=== PATIENT | female | born 1990 | race Caucasian/White ===

== ENCOUNTER → 2020-12-12 13:38 | Outpatient (BNVA) | payer BC, SELFPAY | PROVIDERS: Family Provider Nurse Practitioner Family; Visit Provider Nurse Practitioner Family | DX: R53.83 Other fatigue (principal); L70.9 Acne, unspecified; F41.9 Anxiety disorder, unspecified | CPT/HCPCS: 84443; 85025 ==

== ENCOUNTER 2022-12-04 15:00 | Outpatient (CLI) | payer BC, MEDICAID, SELFPAY ==
--- NOTE | 2022-12-04 15:15 | US_ITS ---
WS: [id number] ULTRASOUND SOFT TISSUES LEFT cervical chain HISTORY: R59.1 - Generalized enlarged lymph nodes COMPARISON: None available. TECHNIQUE: 2-D and color Doppler imaging is submitted. Ultrasound on the LEFT cervical chain demonstrates normal cervical chain lymph nodes. Normal fatty hi lum and cortex. Normal vascularity. US/US soft tissue head neck [id number] IMPRESSION: Normal LEFT cervical chain lymph nodes.
== END 2022-12-04 15:01 | disposition home or self-care (01) ==
LOC: RAD 15:05
PROVIDERS: PCP Nurse Practitioner Family; Visit Provider Nurse Practitioner Family
DX: R59.1 Generalized enlarged lymph nodes (principal)
CPT/HCPCS: 76536

== ENCOUNTER 2023-01-18 15:38 | Outpatient (CLI) | payer BC, MEDICAID, SELFPAY ==
--- NOTE | 2023-01-18 15:46 | CTR_ITS ---
PROCEDURE INFORMATION: Exam: CT Neck With Contrast Exam date and time: 01/18/2023 4:18 PM Age: 32 years old Clinical indication: Mass, lump, or swelling in neck; Left; Additional info: Cervicalgia TECHNIQUE: Imaging protocol: Computed tomography of the neck with contrast. Radiation optimization: All CT scans at this facility use at least one of these dose optimization techniques: automated exposure control; mA and/or kV adjustment per patient size (includes targeted exams where dose is matched to clinical indication); or iterative reconstruction. Contrast material: OMNI 350; Contrast volume: 100 ml; Contrast route: INTRAVENOUS (IV); REPORTING DATA: Count of CT and Cardiac NM exams in prior 12 months: This patient has received 0 known CTs and 0 known cardiac nuclear medicine studies in the 12 months prior to the current study. COMPARISON: US soft tissue head neck [id number] 12/04/2022 3:20 PM RADIATION DOSE METRICS: Total DLP (mGy-cm): 154.75 FINDINGS: Paranasal sinuses: Scattered paranasal sinus mucosal thickening, without air-fluid level present. Pharynx: Unremarkable. No significant tonsillar enlargement. Larynx: Unremarkable. Epiglottis is normal. Prevertebral and retropharyngeal spaces: Unremarkable. Salivary glands: Normal. Glands are normal in size. Thyroid: Normal. No enlarged or calcified nodules. Lymph nodes: In left level 2 there are mildly prominent lymph nodes present which measure up to 9 mm short axis which are nonspecific. Trachea: Visualized trachea is unremarkable. Lungs: Unremarkable as visualized. Bones/joints: The cervical spine is straightened which is nonspecific and may be a positional finding. No acute osseous injury is seen. Soft tissues: There is a palpable marker present in the left neck. There is no suspicious mass seen on CT in this region. CT/CT neck w con* [id number] IMPRESSION: 1. No acute findings. 2. No suspicious mass is seen in the left neck deep to the palpable marker. There are subcentimeter left level 2 lymph nodes seen in this region which are nonspecific and may be reactive.
[2023-01-18] MEDS: iohexol 350 mg/mL 500 mL Btl (per mL) IV (15:56)
== END 2023-01-18 15:39 | disposition home or self-care (01) ==
PROVIDERS: PCP Nurse Practitioner Family; Visit Provider Specialist
DX: M54.2 Cervicalgia (principal); R22.1 Localized swelling, mass and lump, neck
CPT/HCPCS: 70491; Q9967

== ENCOUNTER → 2023-02-12 11:03 | Outpatient (BNVA) | payer BC, MEDICAID, SELFPAY | PROVIDERS: PCP Nurse Practitioner Family; Visit Provider Nurse Practitioner Family | DX: E78.5 Hyperlipidemia, unspecified (principal); R53.83 Other fatigue; F41.9 Anxiety disorder, unspecified | CPT/HCPCS: 80053; 80061 ==

== ENCOUNTER → 2023-05-24 13:39 | Outpatient (BNVA) | payer BC, MEDICAID, SELFPAY | PROVIDERS: PCP Nurse Practitioner Family; Visit Provider Nurse Practitioner Family | DX: J06.9 Acute upper respiratory infection, unspecified (principal); Z11.52 Encounter for screening for COVID-19 | CPT/HCPCS: 87400; 87426 ==

== ENCOUNTER → 2023-12-05 14:19 | Outpatient (BNVA) | payer BC, MEDICAID, SELFPAY | PROVIDERS: PCP Nurse Practitioner Family; Visit Provider Nurse Practitioner Family | DX: R55 Syncope and collapse (principal); M54.12 Radiculopathy, cervical region | CPT/HCPCS: 82728; 83550; 84466; 85025 ==

== ENCOUNTER 2024-01-03 15:47 | Outpatient (CLI) | payer BC, MEDICAID, SELFPAY ==
--- NOTE | 2024-01-03 16:00 | MR_ITS ---
WS: [id number] MRI CERVICAL SPINE with and without contrast HISTORY: M54.12 - Radiculopathy, cervical region, RIGHT arm pain. COMPARISON: None available. Technique: Multiplanar, multisequence noncontrast imaging of the cervical spine. Postcontrast imaging 18 mL MultiHance. Straightening and reversal of the normal cervical lordosis. Reversal centered at C4-5. Moderate poste rior disc osteophyte complexes encroaching upon the cervical cord most significant at C4-5 and C5-6. Signal within the cervical cord is normal. Visualized posterior fossa is unremarkable. Craniocervical junction, C1 and C2 relationship, odontoid process and soft tissues are normal. C2-C3: Normal. C3-C4: Small RIGHT foraminal osteophyte. No stenosis. C4-C5: Moderate size LEFT foraminal disc osteophyte complex. Predominantly clawlike osteophyte causin g deformity of the LEFT lateral thecal sac and moderate LEFT foraminal stenosis. Mild facet arthritis . C5-C6: Diffuse osteophytic ridging and disc bulging. Shallow central disc protrusion. Small foraminal osteophytes with mild LEFT foraminal stenosis. C6-C7: Small central disc protrusion. Small foraminal osteophytes and mild facet arthritis. Mild fora patrizia narrowing. C7-T1: No stenosis. Postcontrast imaging is negative. No discitis or osteomyelitis. No enhancing mass. MR/MR cervical spine wo/w [id number] IMPRESSION: 1. Straightening of the normal cervical lordosis centered at C4-5 and C5-6. 2. Disc osteophyte complexes most significant at C4-5 and C5-6 encroaching upo n the thecal sac. 3. C4-5: Moderate size LEFT foraminal disc osteophyte complex. Moderate LEFT f oraminal stenosis. 4. C5-6: Mild LEFT foraminal stenosis. Small foraminal osteophytes and a shall ow disc protrusion. 5. C6-7: Mild bilateral foraminal narrowing.
[2024-01-03] MEDS: gadobenate dimeglumine 20 mL vial IV (16:54)
== END 2024-01-03 15:48 | disposition home or self-care (01) ==
LOC: RAD 15:47
PROVIDERS: PCP Nurse Practitioner Family; Visit Provider Nurse Practitioner Family
DX: M54.12 Radiculopathy, cervical region (principal); M47.892 Other spondylosis, cervical region; M99.61 Osseous and subluxation stenosis of intervertebral foramina of cervical region; M25.78 Osteophyte, vertebrae; G95.29 Other cord compression
CPT/HCPCS: 72156; A9577

== ENCOUNTER → 2024-06-11 10:49 | Outpatient (BNVA) | payer BC, MEDICAID, SELFPAY | PROVIDERS: PCP Nurse Practitioner Family; Visit Provider Registered Nurse | DX: R10.9 Unspecified abdominal pain (principal) | CPT/HCPCS: 85025 ==

== ENCOUNTER 2024-06-12 11:53 | Outpatient (CLI) | payer BC, MEDICAID, SELFPAY ==
--- NOTE | 2024-06-12 12:33 | CT_ITS ---
WS: [id number] CT ABDOMEN AND PELVIS WITH CONTRAST HISTORY: K37 - Unspecified appendicitis TECHNIQUE: Imaging performed of the abdomen and pelvis with IV contrast. Single phase imaging of the abdomen. Coronal and sagittal reformats are submitted. All CT scans at [facility] use at [facility] one of these dose optimization techniques: automated exposure control; mA and/or kV adjustment per patient size (includes targeted exams where dose is matched to clinical indication); or iterative re construction. IV CONTRAST: Omnipaque 350; 100 mL IV. Oral contrast: Yes. DLP: 319.53 mGy.cm COMPARISON: None available. Lower thorax: Lung bases are clear. Heart is normal size. No hiatal hernia. Liver/biliary system: Normal size with no intrahepatic dilatation. Gallbladder: Normal. No gallstones or wall thickening. No pericholecystic fluid. Pancreas: Normal size pancreas and pancreatic duct. No adjacent inflammation. Spleen: Normal size spleen. No mass or infarct. Adrenal glands: Normal. Right kidney: Normal. Left kidney: Normal. Aorta: Normal. Lymphadenopathy: None. Free fluid: Small amount of free fluid in the cul-de-sac. GI tract: Nondistended stomach. No small bowel obstruction. The appendix is identified and normal. Ma rked fecal retention in the RIGHT and transverse colon. No obstructive pattern. Abdominal wall: Unremarkable abdominal wall. No hernia. Pelvis: Small amount of free fluid in the pelvis. Uterus is midline and normal size. The area of subt le heterogeneity along the anterior uterus towards the fundus may be a small developing fibroid. Yesika ral small follicles in the RIGHT ovary. Subtle peripheral enhancement of one of the cyst is probably a corpus luteum cyst beginning to involute. Bones: Unremarkable. CT/CT abdomen pelvis w con* [id number] IMPRESSION: 1. Normal appendix. No appendicitis. 2. Very tiny amount of free fluid in the cul-de-sac is physiologic. 3. Small RIGHT ovarian follicles and a corpus luteal cyst. 4. Marked fecal retention in the RIGHT and transverse colon. 5. No renal obstruction. Findings were discussed with the patient at the end of the CT examination. Ismael mmend follow-up with primary caregiver.
[2024-06-12] MEDS: iohexol 350 mg/mL 500 mL Btl (per mL) IV (13:19)
[2024-06-12] MEDS: iohexol 350 mg/mL 500 mL Btl (per mL) PO (13:19)
== END 2024-06-12 11:54 | disposition home or self-care (01) ==
PROVIDERS: PCP Nurse Practitioner Family; Visit Provider Registered Nurse
DX: K37 Unspecified appendicitis (principal); N83.11 Corpus luteum cyst of right ovary; K59.00 Constipation, unspecified
CPT/HCPCS: 74177

== ENCOUNTER → 2024-06-17 14:53 | Outpatient (BNVA) | payer BC, MEDICAID, SELFPAY | PROVIDERS: PCP Nurse Practitioner Family; Visit Provider Nurse Practitioner Family | DX: D72.829 Elevated white blood cell count, unspecified (principal) | CPT/HCPCS: 85025 ==